=== PATIENT | male | born 1965 | race Asian ===

== ENCOUNTER 2021-11-25 08:09 | Emergency (ER) | payer MEDICAID ==
[~2021-11-25] VITALS: Ht 170.2 cm; Wt 75.0 kg
[2021-11-25] MEDS ORDERED: KETOROLAC TROMETHAMINE 30 MG/ML VIAL IM ONE (11:30)
[2021-11-25] MEDS ORDERED: BACLOFEN 10 MG TABLET PO ONE (11:30)
[2021-11-25] MEDS ORDERED: BACL10TA PO (14:45)
[2021-11-25] MEDS ORDERED: IBUP-2070 PO (14:46)
[2021-11-25 15:03] VITALS: BP 126/83
[2021-11-25] MEDS ORDERED: HYDR30OI13 TP (15:10)
== END 2021-11-25 15:17 | disposition home or self-care (01) ==
LOC: EDUNIT# 08:09 → EMS 08:16
DX: M54.2 Cervicalgia (principal); M54.50 Low back pain, unspecified; F17.210 Nicotine dependence, cigarettes, uncomplicated; F12.90 Cannabis use, unspecified, uncomplicated; F15.90 Other stimulant use, unspecified, uncomplicated; V89.2XXA Person injured in unspecified motor-vehicle accident, traffic, initial encounter; Y93.89 Activity, other specified; Y92.89 Other specified places as the place of occurrence of the external cause; Y99.8 Other external cause status
CPT/HCPCS: 72040; 72100; 72125; 96372; 99284; J1885

== ENCOUNTER 2021-12-06 07:54 | Emergency (ER) | payer MEDICAID ==
[~2021-12-06] VITALS: Ht 165.1 cm; Wt 61.0 kg
[~2021-12-06 07:54] MED LIST: BACL10TA PO; HYDR30OI13 TP; IBUP-2070 PO
[2021-12-06 08:19] VITALS: BP 130/81
[2021-12-06] MEDS ORDERED: ACET-66 PO (08:19)
[2021-12-06] MEDS ORDERED: METH-812 PO (08:19)
[2021-12-06] MEDS ORDERED: IBUP-1554 PO (08:19)
[2021-12-06] MEDS ORDERED: KETOROLAC TROMETHAMINE 60 MG/2 ML VIAL IM ONE (08:30)
[2021-12-06] MEDS ORDERED: METHOCARBAMOL 500 MG TABLET PO ONE (08:30)
== END 2021-12-06 08:42 | disposition home or self-care (01) ==
LOC: EMS 07:56
DX: S39.012A Strain of muscle, fascia and tendon of lower back, initial encounter (principal); F10.20 Alcohol dependence, uncomplicated; F12.90 Cannabis use, unspecified, uncomplicated; F15.10 Other stimulant abuse, uncomplicated; F17.210 Nicotine dependence, cigarettes, uncomplicated; V89.2XXA Person injured in unspecified motor-vehicle accident, traffic, initial encounter; Y93.89 Activity, other specified; Y92.89 Other specified places as the place of occurrence of the external cause; Y99.8 Other external cause status
CPT/HCPCS: 99283; 96372; J1885

== ENCOUNTER 2023-06-14 11:44 | Emergency (ER) | payer MEDICAID ==
[~2023-06-14] VITALS: Ht 165.1 cm; Wt 63.6 kg
[~2023-06-14 11:44] MED LIST changes: +ACET-66 PO; +IBUP-1492 PO; +IBUP-1554 PO; -IBUP-2070 PO; +METH-812 PO
[2023-06-14 11:50] VITALS: BP 112/86; PULSE 114; RESP 18; TEMP 98
[2023-06-14 12:02] LABS: COVID AG,FIA SOURCE NASAL SWAB
[2023-06-14 12:13] LABS: INFLUENZA TYPE A NEGATIVE FOR TYPE A (NEGATIVE); INFLUENZA TYPE B NEGATIVE FOR TYPE B (NEGATIVE)
[2023-06-14 12:14] LABS: SARS-COV2 (COVID) ANTIGEN,FIA Negative (Negative)
[2023-06-14] MEDS ORDERED: DOXY-354 PO (14:11)
[2023-06-14] MEDS ORDERED: METH-659 PO (14:11)
[2023-06-14] MEDS ORDERED: IBUP-1554 PO (14:11)
[2023-06-14] MEDS ORDERED: PRED-554 PO (14:11)
[2023-06-14] MEDS ORDERED: ALBU18HF12 IH (14:11)
[2023-06-14] MEDS ORDERED: GUAIFDM PO (14:11)
== END 2023-06-14 14:28 | disposition home or self-care (01) ==
LOC: EMS 11:44
DX: J06.9 Acute upper respiratory infection, unspecified (principal); J18.9 Pneumonia, unspecified organism; F17.210 Nicotine dependence, cigarettes, uncomplicated; F12.90 Cannabis use, unspecified, uncomplicated; F15.90 Other stimulant use, unspecified, uncomplicated; Z20.822 Contact with and (suspected) exposure to COVID-19
CPT/HCPCS: 87804; 99283